=== PATIENT | female | born 1960 | race Caucasian/White ===

== ENCOUNTER 2021-04-30 17:14 | Emergency (ER) | payer MEDICAID ==
[~2021-04-30] VITALS: Ht 160 cm; Wt 78.5 kg
[2021-04-30 17:33] VITALS: BP_SYST 125
--- NOTE | 2021-04-30 17:39 | NUR ---
Patient to ER bed TENT1 to gown for evaluation. Side rails up.
--- NOTE | 2021-04-30 17:40 | NUR ---
ER at bedside examining patient.
--- NOTE | 2021-04-30 17:42 | NUR ---
Pt brought by family, A&Ox4, pt presents to ER with recent covid + test, pt states she was checking her oxygen at home and the result was 92 %, c/o mild cough x 4 days, skin pink and warm, afebrile, respirations even and unlabored, cap refill <3.
--- NOTE | 2021-04-30 18:16 | NUR ---
Walk test performed: patient o2 sat at 95%, 82 HR. Walked patient for 1 minute. Post-walk o2 sat at 95%, 98-100 HR
[2021-04-30] MEDS ORDERED: DOXYCYCLINE HYCLATE 100 MG CAPSULE PO ONE (19:15)
[2021-04-30] MEDS ORDERED: ONDANSETRON 4 MG ODT TAB PO ONE (19:15)
[2021-04-30] MEDS ORDERED: DEXAMETHASONE SOD PHOSPHATE 4 MG/ML VIAL PO ONE (19:15)
--- NOTE | 2021-04-30 19:36 | NUR ---
Pt medicated as ordered, A&Ox4, respirations even and unlabored.
[2021-04-30 19:46] VITALS: BP_SYST 125
--- NOTE | 2021-04-30 19:47 | NUR ---
Patient given written and verbal discharge instructions and verbalizes understanding. ER MD discussed with patient the results and treatment provided. Patient in stable condition. ID arm band removed. Rx of decadron, zinc, doxycicline, zofran given. Patient educated on pain management and to follow up with PMD. Pain Scale 0/10 . Opportunity for questions provided and answered. Medication side effect fact sheet provided.
== END 2021-04-30 19:46 | disposition home or self-care (01) ==
LOC: SED 17:14
DX: U07.1 COVID-19 (principal)
CPT/HCPCS: 71045; 87426; 99284; J1100; Q0162; 36415

== ENCOUNTER 2022-05-17 05:37 | Inpatient (IN) | payer MEDICAID ==
[~2022-05-17] VITALS: Ht 160 cm; Wt 76.7 kg
[2022-05-17 06:01] VITALS: BP_SYST 128
[2022-05-17] MEDS ORDERED: DOXYCYCLINE HYCLATE 100 MG in D5W 100 ML IV ONE (06:45)
[2022-05-17] MEDS ORDERED: ONDANSETRON HCL 4 MG/2 ML VIAL IVP ONE (06:45)
[2022-05-17] MEDS ORDERED: DIPHENHYDRAMINE INJ 50 MG/ML VIAL IVP ONE (06:45)
[2022-05-17] MEDS ORDERED: NACL 0.9% 1,000 ML IV ONE ×2 (06:45→09:45)
[2022-05-17] MEDS ORDERED: LevALBUTEROL HCL 1.25 MG/0.5 ML *CONC.* VIAL.NEB (XOPENEX CONC.) INH ONE (06:45)
[2022-05-17 07:00] LABS: BASOPHILS % (AUTO) 0.1 % (0.0-2.0); EOSINOPHILS % (AUTO) 0.3 % (0.0-4.0); HEMATOCRIT 36.2 % (36-48); HEMOGLOBIN 12.4 g/dL (12.0-16.0); LYMPHOCYTES # (AUTO) 1.1 K/uL (1.0-5.5); LYMPHOCYTES % (AUTO) 7.9 % (20.5-51.5); MEAN CORPUSCULAR HEMOGLOBIN 30 pg (27-31); MEAN CORPUSCULAR HGB CONC 34 % (32-36); MEAN CORPUSCULAR VOLUME 87 fL (79.0-98.0); MONOCYTES # (AUTO) 0.6 K/uL (0.0-1.0); MONOCYTES % (AUTO) 4.4 % (1.7-9.3); NEUTROPHILS # (AUTO) 12.2 K/uL (1.8-7.7); NEUTROPHILS % (AUTO) 87.3 % (40.0-70.0); PLATELET COUNT (AUTO) 278 K/uL (130-430); RED BLOOD CELL COUNT(AUTO) 4.14 MIL/uL (4.2-6.2); RED CELL DISTRIBUTION WIDTH 13.2 % (9.0-15.0)
[2022-05-17 07:26] LABS: CALCIUM 8.5 mg/dL (8.4-11.0); CREATININE 0.8 mg/dL (0.55-1.30)
[2022-05-17 07:32] LABS: ALBUMIN 3.7 g/dL (3.4-4.8); TOTAL BILIRUBIN 0.5 mg/dL (0.0-1.0)
[2022-05-17] MEDS ORDERED: DOXYCYCLINE HYCLATE 100 MG VIAL IV ONE (07:56)
[2022-05-17] MEDS ORDERED: ALBMDI INH (07:58)
[2022-05-17] MEDS ORDERED: GUAI-723 PO (07:58)
[2022-05-17] MEDS ORDERED: INHA1EAC52 MC (07:58)
[2022-05-17] MEDS ORDERED: DOXY100T2 PO (07:58)
[2022-05-17] MEDS ORDERED: IBUP-1969 PO (07:59)
[2022-05-17] MEDS ORDERED: PSEU120T57 PO (08:06)
[2022-05-17] MEDS ORDERED: KETOROLAC TROMETHAMINE 30 MG VIAL IVP ONE (12:00)
[2022-05-17 14:31] VITALS: BP_SYST 99
[2022-05-17] MEDS: D5NS 1,000 ML IV SCH ×2 (16:22→21:46)
[2022-05-17 16:34] VITALS: BP_SYST 108
[2022-05-17] MEDS ORDERED: LevALBUTEROL HCL 1.25 MG/0.5 ML *CONC.* VIAL.NEB (XOPENEX CONC.) INH PRN (18:15)
[2022-05-17] MEDS ORDERED: ACETAMINOPHEN 325 MG TABLET PO PRN (18:30)
[2022-05-17 20:00] VITALS: BP_SYST 108
[2022-05-17] MEDS: ENOXAPARIN SODIUM 40 MG/0.4 ML SYRINGE SUBCUT SCH (20:07)
[2022-05-17 20:10] VITALS: BP_SYST 108
[2022-05-17] MEDS: LevALBUTEROL HCL 1.25 MG/0.5 ML *CONC.* VIAL.NEB (XOPENEX CONC.) INH SCH (23:30)
[2022-05-18] VITALS: BP_SYST 104
[2022-05-18 06:05] LABS: BASOPHILS % (AUTO) 0.3 % (0.0-2.0); EOSINOPHILS # (AUTO) 0.2 K/uL (0.0-0.4); EOSINOPHILS % (AUTO) 2.2 % (0.0-4.0); HEMATOCRIT 33.4 % (36-48); HEMOGLOBIN 11.3 g/dL (12.0-16.0); LYMPHOCYTES # (AUTO) 3.1 K/uL (1.0-5.5); LYMPHOCYTES % (AUTO) 30.8 % (20.5-51.5); MEAN CORPUSCULAR HEMOGLOBIN 30 pg (27-31); MEAN CORPUSCULAR HGB CONC 34 % (32-36); MEAN CORPUSCULAR VOLUME 89 fL (79.0-98.0); MONOCYTES # (AUTO) 0.8 K/uL (0.0-1.0); MONOCYTES % (AUTO) 7.5 % (1.7-9.3); NEUTROPHILS # (AUTO) 5.9 K/uL (1.8-7.7); NEUTROPHILS % (AUTO) 59.2 % (40.0-70.0); PLATELET COUNT (AUTO) 239 K/uL (130-430); RED BLOOD CELL COUNT(AUTO) 3.74 MIL/uL (4.2-6.2); RED CELL DISTRIBUTION WIDTH 13.6 % (9.0-15.0)
[2022-05-18 06:30] LABS: ALBUMIN 2.8 g/dL (3.4-4.8); CALCIUM 7.8 mg/dL (8.4-11.0); CREATININE 0.6 mg/dL (0.55-1.30); TOTAL BILIRUBIN 0.5 mg/dL (0.0-1.0)
[2022-05-18] MEDS: LevALBUTEROL HCL 1.25 MG/0.5 ML *CONC.* VIAL.NEB (XOPENEX CONC.) INH SCH ×3 (07:39→23:35)
[2022-05-18 08:00] VITALS: BP_SYST 115
[2022-05-18] MEDS ORDERED: cefTRIAXone 1 GM VIAL IM ONE (09:00)
[2022-05-18] MEDS: cefTRIAXone 1 GM IVPB PREMIX 50 ML IV SCH (09:00)
[2022-05-18] MEDS: AZITHROMYCIN 500 MG in NS 250 ML IV SCH (09:19)
[2022-05-18] MEDS: D5NS 1,000 ML IV SCH ×2 (09:22→18:30)
[2022-05-18 12:00] VITALS: BP_SYST 116; BP_SYST 126
[2022-05-18 16:07] VITALS: BP_SYST 118
[2022-05-18] MEDS ORDERED: MILK OF MAGNESIA 30 ML UDC PO PRN (18:00)
[2022-05-18] MEDS ORDERED: DOCUSATE SODIUM 100 MG CAPSULE PO ONE (18:00)
[2022-05-18 20:00] VITALS: BP_SYST 132
[2022-05-18] MEDS: DOCUSATE SODIUM 100 MG CAPSULE PO SCH (20:33)
[2022-05-18] MEDS: ENOXAPARIN SODIUM 40 MG/0.4 ML SYRINGE SUBCUT SCH (20:34)
[2022-05-19] VITALS: BP_SYST 124
[2022-05-19] MEDS: D5NS 1,000 ML IV SCH ×2 (04:34→16:51)
[2022-05-19] MEDS ORDERED: PROMETHAZINE HCL 25 MG TABLET PO PRN (06:00)
[2022-05-19] MEDS: guaiFENesin/DEXTROMETHORPHAN 10 ML UDC PO PRN ×2 (06:38→16:50)
[2022-05-19] MEDS: LevALBUTEROL HCL 1.25 MG/0.5 ML *CONC.* VIAL.NEB (XOPENEX CONC.) INH SCH ×4 (07:29→22:31)
[2022-05-19] MEDS: DOCUSATE SODIUM 100 MG CAPSULE PO SCH ×2 (09:51→20:47)
[2022-05-19] MEDS: AZITHROMYCIN 500 MG in NS 250 ML IV SCH (09:52)
[2022-05-19] MEDS: cefTRIAXone 1 GM IVPB PREMIX 50 ML IV SCH (09:52)
[2022-05-19 11:20] VITALS: BP_SYST 127
[2022-05-19] MEDS ORDERED: METHYLPREDNISOLONE SOD SUCC 40 MG/ML VIAL IVP ONE (15:00)
[2022-05-19] MEDS ORDERED: LevALBUTEROL HCL 1.25 MG/0.5 ML *CONC.* VIAL.NEB (XOPENEX CONC.) INH ONE (15:00)
[2022-05-19] MEDS ORDERED: LevALBUTEROL HCL 1.25 MG/0.5 ML *CONC.* VIAL.NEB (XOPENEX CONC.) INH PRN (15:00)
[2022-05-19 17:16] VITALS: BP_SYST 123
[2022-05-19 20:00] VITALS: BP_SYST 130
[2022-05-19] MEDS: METHYLPREDNISOLONE SOD SUCC 40 MG/ML VIAL IVP SCH (20:47)
[2022-05-19] MEDS: ENOXAPARIN SODIUM 40 MG/0.4 ML SYRINGE SUBCUT SCH (20:47)
[2022-05-20] VITALS: BP_SYST 122
[2022-05-20] MEDS: LevALBUTEROL HCL 1.25 MG/0.5 ML *CONC.* VIAL.NEB (XOPENEX CONC.) INH SCH ×4 (00:52→21:05)
[2022-05-20] MEDS: D5NS 1,000 ML IV SCH ×3 (01:36→20:30)
[2022-05-20] MEDS: guaiFENesin/DEXTROMETHORPHAN 10 ML UDC PO PRN ×3 (02:36→20:58)
[2022-05-20 08:00] VITALS: BP_SYST 125
[2022-05-20 09:27] VITALS: BP_SYST 122
[2022-05-20] MEDS: METHYLPREDNISOLONE SOD SUCC 40 MG/ML VIAL IVP SCH ×2 (10:06→20:58)
[2022-05-20] MEDS: DOCUSATE SODIUM 100 MG CAPSULE PO SCH ×2 (10:06→20:58)
[2022-05-20] MEDS: AZITHROMYCIN 500 MG in NS 250 ML IV SCH (10:07)
[2022-05-20] MEDS: cefTRIAXone 1 GM IVPB PREMIX 50 ML IV SCH (10:32)
[2022-05-20] MEDS: ACETAMINOPHEN 325 MG TABLET PO PRN (10:33)
[2022-05-20 20:00] VITALS: BP_SYST 131
[2022-05-20] MEDS: ENOXAPARIN SODIUM 40 MG/0.4 ML SYRINGE SUBCUT SCH (20:58)
[2022-05-21] MEDS: LevALBUTEROL HCL 1.25 MG/0.5 ML *CONC.* VIAL.NEB (XOPENEX CONC.) INH SCH ×3 (01:44→13:28)
[2022-05-21] MEDS: D5NS 1,000 ML IV SCH ×2 (06:35→17:30)
[2022-05-21 08:00] VITALS: BP_SYST 114
[2022-05-21] MEDS: DOCUSATE SODIUM 100 MG CAPSULE PO SCH ×2 (09:00→21:02)
[2022-05-21] MEDS: AZITHROMYCIN 500 MG in NS 250 ML IV SCH (09:00)
[2022-05-21] MEDS: METHYLPREDNISOLONE SOD SUCC 40 MG/ML VIAL IVP SCH ×2 (09:00→21:02)
[2022-05-21] MEDS: cefTRIAXone 1 GM IVPB PREMIX 50 ML IV SCH (09:00)
[2022-05-21 10:31] VITALS: BP_SYST 116
[2022-05-21 12:00] VITALS: BP_SYST 116
[2022-05-21 16:00] VITALS: BP_SYST 122
[2022-05-21] MEDS: ACETAMINOPHEN 325 MG TABLET PO PRN (17:40)
[2022-05-21 20:00] VITALS: BP_SYST 123
[2022-05-21] MEDS: guaiFENesin/DEXTROMETHORPHAN 10 ML UDC PO PRN (21:02)
[2022-05-21] MEDS: ENOXAPARIN SODIUM 40 MG/0.4 ML SYRINGE SUBCUT SCH (21:02)
[2022-05-22] MEDS: LevALBUTEROL HCL 1.25 MG/0.5 ML *CONC.* VIAL.NEB (XOPENEX CONC.) INH SCH ×4 (00:05→13:50)
[2022-05-22] MEDS: D5NS 1,000 ML IV SCH (04:38)
[2022-05-22 06:41] LABS: BASOPHILS % (AUTO) 0.1 % (0.0-2.0); HEMATOCRIT 33.6 % (36-48); HEMOGLOBIN 11.5 g/dL (12.0-16.0); LYMPHOCYTES # (AUTO) 1.5 K/uL (1.0-5.5); LYMPHOCYTES % (AUTO) 19.5 % (20.5-51.5); MEAN CORPUSCULAR HEMOGLOBIN 30 pg (27-31); MEAN CORPUSCULAR HGB CONC 34 % (32-36); MEAN CORPUSCULAR VOLUME 88 fL (79.0-98.0); MONOCYTES # (AUTO) 0.3 K/uL (0.0-1.0); MONOCYTES % (AUTO) 4.1 % (1.7-9.3); NEUTROPHILS # (AUTO) 5.9 K/uL (1.8-7.7); NEUTROPHILS % (AUTO) 76.3 % (40.0-70.0); PLATELET COUNT (AUTO) 317 K/uL (130-430); RED CELL DISTRIBUTION WIDTH 13.4 % (9.0-15.0); WHITE BLOOD COUNT (AUTO) 7.8 K/uL (4.8-10.8)
[2022-05-22 06:52] LABS: CALCIUM 8.4 mg/dL (8.4-11.0); CREATININE 0.57 mg/dL (0.55-1.30)
[2022-05-22 08:45] VITALS: BP_SYST 122
[2022-05-22] MEDS: METHYLPREDNISOLONE SOD SUCC 40 MG/ML VIAL IVP SCH (09:17)
[2022-05-22] MEDS: DOCUSATE SODIUM 100 MG CAPSULE PO SCH (09:18)
[2022-05-22] MEDS: AZITHROMYCIN 500 MG in NS 250 ML IV SCH (09:18)
[2022-05-22] MEDS: cefTRIAXone 1 GM IVPB PREMIX 50 ML IV SCH (09:18)
[2022-05-22] MEDS: ACETAMINOPHEN 325 MG TABLET PO PRN (09:31)
[2022-05-22 12:00] VITALS: BP_SYST 124
[2022-05-22 17:04] VITALS: BP_SYST 125
== END 2022-05-22 19:30 | disposition home or self-care (01) | DRG 720 ==
LOC: SED 05:37 → STU 12:30 → SMU 05-19 23:30
PROVIDERS: ADMIT Family Medicine; ATTEND Family Medicine
DX: A41.9 Sepsis, unspecified organism (principal); J18.9 Pneumonia, unspecified organism; J45.901 Unspecified asthma with (acute) exacerbation; Z20.822 Contact with and (suspected) exposure to COVID-19
CPT/HCPCS: 36415; 71045; 80048; 80053; 83605; 83735; 84484; 85025; 87040; 93005; 94640; 94760; 96361; 96365; 96375; 99291; 99292; G0378; J0456; J0696; J1030; J1200; J1650; J1885; J2405; J3490; J7030; J7042; J7050; J7060; J7612

== ENCOUNTER 2022-12-06 09:59 | Emergency (ER) | payer MEDICAID ==
[~2022-12-06] VITALS: Ht 157.5 cm; Wt 63.5 kg
[~2022-12-06 09:59] MED LIST: ALBMDI INH; GUAI-723 PO; IBUP-1969 PO; INHA1EAC52 MC; PSEU120T57 PO
[2022-12-06 10:00] VITALS: BP_SYST 119; PULSE 89; RESP 20; TEMP 99.3; O2SAT 94
[2022-12-06] MEDS ORDERED: ALBUTEROL SULFATE 0.083% 2.5 MG/3 ML VIAL.NEB INH ONE (10:15)
[2022-12-06] MEDS ORDERED: IPRATROPIUM BROM 0.5 MG/2.5 ML VIAL.NEB (ATROVENT) INH ONE (10:15)
[2022-12-06] MEDS ORDERED: PRED20TA PO (11:21)
[2022-12-06] MEDS ORDERED: ZIT250 PO (11:21)
[2022-12-06] MEDS ORDERED: ALBMDI INH (11:23)
[2022-12-06] MEDS ORDERED: GUAI5SYR PO (11:23)
[2022-12-06] MEDS ORDERED: AZITHROMYCIN 250 MG TABLET PO ONE (11:45)
[2022-12-06 12:41] VITALS: BP_SYST 112; PULSE 100; RESP 16; TEMP 98.1; O2SAT 95
== END 2022-12-06 12:37 | disposition home or self-care (01) ==
LOC: SED 09:59
DX: J40 Bronchitis, not specified as acute or chronic (principal); R05.9 Cough, unspecified; R06.02 Shortness of breath; Z79.899 Other long term (current) drug therapy; Z20.822 Contact with and (suspected) exposure to COVID-19
CPT/HCPCS: 36415; 93005; 71045; 99285; 87804 ×2; 87426; Q0144; J7613